=== PATIENT | female | born 1975 | race Caucasian/White ===

== ENCOUNTER 2021-02-15 00:22 | Emergency (ER) | payer OTHER ==
[~2021-02-15 00:22] MED LIST: TORADOL10 MG PO
[2021-02-15] MEDS ORDERED: ESCITALOPRAM20 MG PO (00:26)
[2021-02-15] MEDS ORDERED: VALIUM 2MG T2 MG/TAB PO (00:26)
[2021-02-15] MEDS ORDERED: HYDROCHLOROTH12.5 M1 PO (00:26)
[2021-02-15] MEDS ORDERED: LISINOPRIL20 MG PO (00:26)
[2021-02-15 00:54] LABS: HEMOGLOBIN 13.6 g/dL (12.5-16.0); MEAN CELL VOLUME 100 fl (78-100); MEAN CORPUSCULAR HEMOGLOBIN 35 pg (27-31); MEAN CORPUSCULAR HGB CONC 35 g/dL (33-37); MEAN PLATELET VOLUME 10.6 fl (7.4-10.4); PLATELET COUNT 270 K/mm3 (130-400); RED CELL DISTRIBUTION WIDTH 12.7 % (11.5-14.5); WHITE BLOOD COUNT 11.6 K/mm3 (4.8-10.8)
[2021-02-15 01:00] LABS: ALBUMIN 4.4 g/dL (3.5-5.0)
[2021-02-15 01:01] LABS: POTASSIUM 3.4 mmol/L (3.5-5.1)
[2021-02-15 01:02] LABS: CALCIUM 10.4 mg/dL (8.3-10.5)
[2021-02-15 01:03] LABS: TOTAL PROTEIN 7.7 g/dL (6.4-8.3)
[2021-02-15 01:05] LABS: TOTAL BILIRUBIN 0.4 mg/dL (0.2-1.2)
[2021-02-15 01:18] LABS: LYMPHOCYTE 41 % (20-51); MONOCYTE 5 % (3-10); NEUTROPHILS 50 % (42-75)
[2021-02-15 01:52] LABS: URINE APPEARANCE CLEAR; URINE BILIRUBIN NEGATIVE (NEGATIVE); URINE BLOOD 50 ery/uL (NEGATIVE); URINE COLOR YELLOW; URINE GLUCOSE NEGATIVE (NEGATIVE); URINE KETONE NEGATIVE (NEGATIVE); URINE LEUKOCYTE ESTERASE NEGATIVE (NEGATIVE); URINE NITRATE NEGATIVE (NEGATIVE); URINE PROTEIN(semi-quant) TRACE mg/dL (NEGATIVE); URINE UROBILINOGEN NORMAL (NORMAL); URINE WBC 0-1 /hpf (0-3)
[2021-02-15 05:39] VITALS: BP 115/82
== END 2021-02-15 05:40 | disposition home or self-care (01) ==
LOC: ED 00:22
PROVIDERS: Nurse Practitioner Family
DX: I47.9 Paroxysmal tachycardia, unspecified (principal); I10 Essential (primary) hypertension; F41.9 Anxiety disorder, unspecified; F17.210 Nicotine dependence, cigarettes, uncomplicated; Z20.822 Contact with and (suspected) exposure to COVID-19; Z79.899 Other long term (current) drug therapy

== ENCOUNTER → 2023-10-31 | Outpatient (CLI) | payer OTHER ==
[~2023-10-31] MED LIST changes: +ESCITALOPRAM20 MG PO; +HYDROCHLOROTH12.5 M1 PO; +LISINOPRIL20 MG PO; +VALIUM 2MG T2 MG/TAB PO
[2023-12-22 14:28] LABS: HEPATITIS B CORE AB TOTAL NEG; HEPATITIS B SURFACE ANTIGEN NEG; HEPATITIS C VIRUS ANTIBODY NON REACTIVE
[2023-12-22 14:29] LABS: TB GOLD INTERPRETATION.TB GOLD AMS; TB MITOGEN-NIL AMS; TB NIL VALUE AMS; TB TB1-NIL AMS; TB TB2-NIL AMS
[2023-12-22 14:52] LABS: ALBUMIN 4.4 g/dL (3.5-5.0); CALCIUM 9.3 mg/dL (8.3-10.5); TOTAL BILIRUBIN 0.6 mg/dL (0.2-1.2); TOTAL PROTEIN 7.1 g/dL (6.4-8.3)
[2023-12-22 14:58] LABS: BASO # 0.01 K/mm3 (0.02-0.10); EOS # 0.33 K/mm3 (0.04-0.40); EOS % 3.1 % (1.0-5.0); HEMATOCRIT 40.1 % (37.0-47.0); HEMOGLOBIN 13.9 g/dL (12.5-16.0); LYMPH# 3.67 K/mm3 (1.50-4.00); MEAN CELL VOLUME 99 fl (78-100); MEAN CORPUSCULAR HEMOGLOBIN 34 pg (27-31); MEAN CORPUSCULAR HGB CONC 35 g/dL (33-37); MEAN PLATELET VOLUME 10.4 fl (7.4-10.4); MONO # 0.31 K/mm3 (0.20-0.80); NEU # 6.16 K/mm3 (1.40-6.50); PLATELET COUNT 217 K/mm3 (130-400); RED BLOOD COUNT 4.06 M/mm3 (4.10-5.30); RED CELL DISTRIBUTION WIDTH 12.3 % (11.5-14.5); WHITE BLOOD COUNT 10.5 K/mm3 (4.8-10.8)
== END ==
LOC: LAB 12:30
DX: Z51.81 Encounter for therapeutic drug level monitoring (principal); Z79.899 Other long term (current) drug therapy